=== PATIENT | female | born 1985 | race Caucasian/White ===

== ENCOUNTER 2018-08-14 01:23 | Inpatient (IN) ==
[2018-08-14 01:42] VITALS: TEMP 98.5
--- NOTE | 2018-08-14 02:33 | P.HPOB ---
Patient Name: Rachel Velez Date of : 87 Patient Status: Emergency Emergency Provider: Carlos Cid Date: 08/14/18 02:25 Initialization Date: 08/14/18 02:25 History of Present Illness Primary Care Physician: Archana Lazo MD Chief Complaint: Decreased movement times several hours History of Present Illness: 33-year-old at 38+ weeks presents complaining of decreased movement times several hours. Patient ate some ice cream states no movement and has had some concerns. Renal care with Dr. Cid. 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 SKIN: Warm and dry. HEAD: Normocephalic and atraumatic. EYES: No scleral icterus. No injection or drainage. ENT: No nasal drainage noted. Mucous membranes pink. Airway patent. NECK: Supple, trachea midline. No JVD. CARDIOVASCULAR: Regular rate and rhythm without murmurs, gallops, or rubs. RESPIRATORY: Breath sounds equal bilaterally. No accessory muscle use. BREASTS: Bilateral exam showed no masses , no retractions, no nipple discharge. ABDOMEN/GI: Abdomen soft, non-tender, bowel sounds present, no rebound, no guarding Gravid to 38 weeks size Fundal Height: 38 GENITOURINARY: External Genitalia: intact and normal in appearance BUS glands: Unremarkable Cervix: Soft to moderate Dilatation: 3 Effacement: 80 Station: -2 -1 Presentation: Vertex confirmed by ultrasound Membranes: Intact Uterine Contractions: Q. 4-5 FHT's: Category: 1 Variability: Moderate BPP at the bedside 8 out of 10 -2 for movement(flexion and extension of the neck-please note however ultrasound not done for 40-minute time interval) DEANDRE [address] Cid previous DEANDRE was higher at 36 weeks EXTREMITIES: No cyanosis or edema. BACK: Nontender without obvious deformity. No CVA tenderness. NEUROLOGICAL: Awake and alert. Motor and sensory grossly within normal limits. Five out of 5 muscle strength in all muscle groups. Normal speech. Assessment and Plan - Diagnosis (1) Decreased movement during in third trimester, antepartum Code(s): O36.8130 - Decreased movements, third trimester, not applicable or unspecified Status: Acute (2) Hypothyroid Code(s): E03.9 - Hypothyroidism, unspecified Status: Acute (3) 38 weeks gestation of Code(s): Z3A.38 - 38 weeks gestation of Status: Acute - Plan Discussed with Dr. Cid Plan admit IV hydration monitor Possible augmentation of labor if needed-patient was requested to go home and wait until she presents in labor complications of such discussed and not advised. Discharge Plan - Physicians Team ED Provider: Carlos Cid Primary Care Provider: Archana Lazo - Discharge Instructions Print Language: Uzbek
[2018-08-14] MEDS ORDERED: Sodium Chlor 0.9% Inj 500 ML IV.SIG PRN (02:34)
[2018-08-14] MEDS ORDERED: Sod Chloride 0.9% Inj 1,000 ML IV.CONT PRN (02:34)
[2018-08-14] MEDS ORDERED: fentaNYL Citrate Inj 100 MCG/2 ML Ampul IV.PUSH PRN ×2 (02:34)
[2018-08-14] MEDS ORDERED: Oxytocin 30 Units/500ml Premix 30 UNITS/500 ML BAG IV.SIG ONE (02:34)
[2018-08-14] MEDS ORDERED: Naloxone Inj 0.4 MG/ML Vial IV.PUSH PRN (02:34)
[2018-08-14] MEDS ORDERED: Citric Acid/Sodium Citrate Liq 30 ML UDC PO SCH (02:45)
[2018-08-14] MEDS ORDERED: Zolpidem Tartrate 5 MG Tablet PO ONE (03:15)
[2018-08-14 08:29] VITALS: RESP 17
[2018-08-14 10:12] VITALS: BP 121/81; PULSE 79
--- NOTE | 2018-08-14 10:21 | MH ---
cc: Carlos Cid MD DATE OF ADMISSION: 08/14/2018 REASON FOR EVALUATION: at 37-38 weeks with decreased movement. HISTORY OF PRESENT ILLNESS: This is a 33-year-old white female, para 0, with LMP approximately 11/19/2017, EDC of 08/30/2018 by dates, 08/29/2018 by ultrasound. Her preop course had been benign. She had called about 1 a.m. this morning reporting a decrease in movement for 2-3 hours, unresponsive to stimulation or intake of carbohydrates. She is advised to come to the center for evaluation. monitoring has been normal and limited biophysical done by the hospitalist showed an DEANDRE of 7.8, which is decreased from her scan 2 weeks ago with a decrease in movement for a score of 8/10. He and I recommended extended monitoring to see if she might be early labor as her cervix is 3 cm to hospitalist exam. While with monitoring, she has had very rare contractions, but the heart rate tracing is normal with good reactivity. PAST SURGICAL HISTORY: Previous surgery: Fracture ulna in 1990, repaired surgically. Systemic illness: Hypothyroidism, 03/31 on therapy, history of migraines. ALLERGIES: NONE. TRANSFUSIONS: None. SOCIAL HISTORY: She is . She is a dentist. Alcohol, tobacco and drugs are none. FAMILY HISTORY: Noncontributory. REVIEW OF SYSTEMS: Negative. PHYSICAL EXAMINATION: GENERAL: This is a well-nourished, well-developed white female. VITAL SIGNS: Stable. HEENT: Normal. CHEST: Clear. HEART: Regular rate. BREASTS: Symmetrical. ABDOMEN: Gravid. EFW of 3000 grams. Cervix is 3, 70%, vertex, intact, 0 station. ASSESSMENT: at 37-38 weeks with decreased movement. PLAN: I discussed the situation with decreased movement, which the patient feels has improved since she is here with the low normal fluid level and the cervical dilation, status. If she were in spontaneous labor we would simply allow her to progress and deliver spontaneously. Alternative being to induce labor and see if the baby tolerates labor and proceed to delivery with a small risk of prematurity. Also, discussed the small risk of stillborn with awaiting a natural labor, i.e., going home and being monitored and awaiting progress. After discussion in detail, she and would like to repeat the biophysical by the OB diagnostic staff and observe her longer to see if she might progress on her own. Pending progress and the results of the BCP, they may elect to proceed with delivery or proceed with discharge. MD MAURY Corona/erika/leonor , 08:24 AM , 08:31 AM
== END 2018-08-14 10:15 | disposition home or self-care (01) | DRG 833 ==
LOC: HOBED 01:23 → H2E 03:17
PROVIDERS: ADMIT Obstetrics & Gynecology; ATTEND Obstetrics & Gynecology

== ENCOUNTER 2018-08-23 06:50 | Inpatient (IN) ==
[2018-08-23] MEDS ORDERED: Naloxone Inj 0.4 MG/ML Vial IV.PUSH PRN ×2 (07:10→08:58)
[2018-08-23] MEDS ORDERED: Sodium Chlor 0.9% Inj 500 ML IV.SIG PRN (07:10)
[2018-08-23] MEDS ORDERED: fentaNYL Citrate Inj 100 MCG/2 ML Ampul IV.PUSH PRN ×2 (07:10)
[2018-08-23] MEDS ORDERED: Sod Chloride 0.9% Inj 1,000 ML IV.CONT PRN (07:10)
[2018-08-23] MEDS ORDERED: Oxytocin 30 Units/500ml Premix 30 UNITS/500 ML BAG IV.SIG ONE (07:10)
[2018-08-23] MEDS ORDERED: Citric Acid/Sodium Citrate Liq 30 ML UDC PO SCH (07:15)
[2018-08-23 07:45] LABS: Baso # (Auto) 0.1 th/mm3 (0.0-0.2); Baso % (Auto) 0.6 % (0.0-2.0); Eos # (Auto) 0.1 th/mm3 (0.0-0.4); Eos % (Auto) 1.6 % (0.0-4.0); Hematocrit 37.1 % (35.0-46.0); Lymph # (Auto) 1.9 th/mm3 (1.0-4.8); Lymph % (Auto) 22.1 % (9.0-44.0); Mean Corpuscular Hemoglobin 32.7 pg (27.0-34.0); Mean Corpuscular Volume 93.4 fL (80.0-100.0); Mean Platelet Volume 8.5 fL (7.0-11.0); Mono % (Auto) 11.5 % (0.0-8.0); Neut # (Auto) 5.5 th/mm3 (1.8-7.7); Neut % (Auto) 64.2 % (16.0-70.0); Platelet Count 222 th/mm3 (150-450); Red Blood Count 3.97 mil/mm3 (4.00-5.30); Red Cell Distribution Width 13.1 % (11.6-17.2); White Blood Count 8.6 th/mm3 (4.0-11.0)
--- NOTE | 2018-08-23 08:53 | MH ---
cc: Carlos Cid MD DATE OF ADMISSION: 08/23/2018 ADMITTING DIAGNOSIS: Term , active labor. HISTORY OF PRESENT ILLNESS: The patient is a 33-year-old white female, para 0, with an EDC of 08/30/2018, presented in active labor arriving, on the anterior lip, is now admitted for delivery. PAST MEDICAL HISTORY: PREVIOUS SURGERY: Repair of fractured ulna in 1990. SYSTEMIC ILLNESS: Migraines and hypothyroidism since age 23. MEDICATIONS: Vitamins and thyroid. TRANSFUSIONS: None. SOCIAL HISTORY: to a dentist. Alcohol, tobacco, and drugs are none. FAMILY HISTORY: Noncontributory. PHYSICAL EXAMINATION: GENERAL: She is a well-nourished, well-developed ,white female in active labor. VITAL SIGNS: Stable. HEENT EXAM: Normal. CHEST: Clear. HEART: Regular rate. BREASTS: Symmetrical. ABDOMEN: Gravid. PELVIC: EFW 3300 grams. Cervix is now complete, vertex, 0, bag bulging membranes. EXTREMITIES: Normal. ASSESSMENT AND PLAN: As above. The patient desires the epidural. Will give IV fentanyl and prepare for epidural if feasible. Anticipate vaginal . GBS is negative. MD MAURY Corona/terrell , 08:36 AM , 08:41 AM
[2018-08-23] MEDS ORDERED: Bisacodyl 10 MG Supp RECTAL PRN (08:58)
[2018-08-23] MEDS ORDERED: Oxytocin 30 Units/500ml Premix 30 UNITS/500 ML BAG IV.CONT PRN (08:58)
[2018-08-23] MEDS ORDERED: Benzocaine 20% Top Spray 60 ML Can TOPICAL PRN (08:58)
[2018-08-23] MEDS ORDERED: Witch Hazel 50%/Glyderin 12.5% 40 Pad Jar RECTAL PRN (08:58)
[2018-08-23] MEDS ORDERED: Acetaminophen 325 MG Tablet PO PRN (08:58)
[2018-08-23] MEDS: Ketorolac Inj 30 MG/ML (IVP) Vial IV.PUSH ONE ×2 (09:31→10:01)
--- NOTE | 2018-08-23 09:38 | MP ---
cc: Carlos Cid MD DATE OF OPERATION: 08/23/2018 DELIVERY SUMMARY: The patient a 33-year-old white female, para 0, at term, who presented in active labor with anterior lip. She received IV fluids, was preparing for epidural. Membranes ruptured and had a strong urge to push. She progressed to a spontaneous vaginal delivery over a midline episiotomy by a vigorous male. She requested delayed cord clamping which was held for 2 minutes, then clamped and cut while she held the baby. Cord blood sent for typing. The perineum had been infiltrated with 10 mL of lidocaine prior to delivery and the placenta delivered intact. The episiotomy was repaired in layers with 2-0 chromic. On postdelivery inspection, the vagina was normal, cervix normal, rectal exam was normal. Counts were correct. ESTIMATED BLOOD LOSS: About 300 mL. MD MAURY Corona/terrell , 08:45 AM , 08:49 AM
[2018-08-23] MEDS: Senna/Docusate Sodium 8.6/50 MG Tablet PO SCH ×2 (10:00→21:04)
[2018-08-23] MEDS: Levothyroxine 100 MCG Tablet PO SCH (10:58)
[2018-08-23] MEDS: Levothyroxine 75 MCG Tablet PO SCH (10:59)
[2018-08-23] MEDS ORDERED: Diphtheria/Tetanus/Pertussis Vaccine Inj 0.5 ML Syringe IM ONE (16:00)
[2018-08-23] MEDS ORDERED: Measles/Mumps/Rubella Vaccine Inj 0.5 ML Vial SQ ONE (16:00)
[2018-08-23] MEDS ORDERED: Zolpidem Tartrate 5 MG Tablet PO PRN (21:00)
[2018-08-24] MEDS: Levothyroxine 75 MCG Tablet PO SCH (06:33)
[2018-08-24] MEDS: Levothyroxine 100 MCG Tablet PO SCH (06:33)
[2018-08-24] MEDS: Senna/Docusate Sodium 8.6/50 MG Tablet PO SCH (08:45)
[2018-08-24 10:28] LABS: Hematocrit 32.3 % (35.0-46.0); Hemoglobin 11.1 gm/dL (11.6-15.3); Mean Corpuscular HGB Conc 34.4 % (32.0-36.0); Mean Corpuscular Hemoglobin 33.2 pg (27.0-34.0); Mean Corpuscular Volume 96.5 fL (80.0-100.0); Mean Platelet Volume 8.6 fL (7.0-11.0); Platelet Count 195 th/mm3 (150-450); Red Blood Count 3.35 mil/mm3 (4.00-5.30); Red Cell Distribution Width 13.6 % (11.6-17.2); White Blood Count 10.8 th/mm3 (4.0-11.0)
--- NOTE | 2018-08-24 11:30 | MD ---
cc: Carlos Cid MD DATE OF DISCHARGE: 08/24/2018 ADMITTING DIAGNOSIS: Term , active labor. DISCHARGE DIAGNOSIS: Term , active labor, delivery. HISTORY OF PRESENT ILLNESS: The patient is a 33-year-old white female, para 0, with an EDC of 08/30/2018. She awoke at 5:30 a.m. in the morning in active labor, presented to the center around 7 a.m. at ant. lip intact. She progressed to a spontaneous vaginal delivery over a midline episiotomy of a viable vigorous male, 's were 9 and 9, weight 7 pounds even. She had a midline episiotomy repaired with local anesthesia and chromic suture. did well. Discharged home in excellent condition on 08/24/2018. The baby was named Robbie and she was . Circumcision was declined. Her laboratory studies are normal. She take her vitamins at home, Synthroid, iron pills and Motrin OTC for pain relief. She was advised NPV and light activity, return to see me in 6 weeks, and call if any abnormal symptoms. MD MAURY Corona/rajeev/belkis , 08:19 AM , 08:23 AM MTDD
== END 2018-08-24 18:17 | disposition home or self-care (01) | DRG 807 ==
LOC: HOBED 06:50 → H2E 07:10 → H1EA 07:20
PROVIDERS: ADMIT Obstetrics & Gynecology; ATTEND Obstetrics & Gynecology
CPT/HCPCS: 59025; 85025; 85027; 86850; 86900; 86901; 87389; 90715; J0131; J1885; J2590; J3010; J7120